=== PATIENT | male | born 1965 | race Caucasian/White ===

== ENCOUNTER 2016-10-23 20:48 | Emergency (ER) | payer OTHER ==
[~2016-10-23] VITALS: Ht 177.8 cm; Wt 124.5 kg
[2016-10-23 20:51] VITALS: Ht 177.8 cm; Wt 124.5 kg
[2016-10-23] MEDS ORDERED: SOD CHLORIDE 0.9% 1,000 ML IV STA (21:15)
[2016-10-23] MEDS ORDERED: morphine 4 MG/ML VIAL IV STA (21:15)
[2016-10-23] MEDS ORDERED: ONDANSETRON 4 MG INJ IV STA (21:15)
[2016-10-23 21:37] LABS: ADD SCAN DIFF NO
[2016-10-23 21:39] LABS: BASOPHILS % 0.5 % (0.0-2.0); EOSINOPHILS # 0.3 10^3/ul (0.0-0.5); EOSINOPHILS % 3.6 % (0.0-7.0); HEMATOCRIT 36.8 % (42.0-52.0); HEMOGLOBIN 12.2 g/dl (14.0-18.0); LYMPHOCYTES # 1.6 10^3/ul (0.8-2.9); LYMPHOCYTES % 20.3 % (15.0-51.0); MEAN CORPUSCULAR HGB CONC 33.2 g/dl (32.0-37.0); MEAN CORPUSCULAR VOLUME 87.6 fl (82.0-101.0); MEAN PLATELET VOLUME 10.5 fl (7.4-10.4); MONOCYTE # 0.6 10^3/ul (0.3-0.9); MONOCYTES % 7.2 % (0.0-11.0); NEUTROPHIL # 5.3 10^3/ul (1.6-7.5); NEUTROPHILS % 68.1 % (39.0-77.0); PLATELET COUNT 177 10^3/UL (140-415); RED CELL DISTRIBUTION WIDTH 12.9 % (11.5-14.5); WHITE BLOOD COUNT 7.7 10^3/ul (4.8-10.8)
[2016-10-23 21:40] LABS: ADD UMIC YES; URINE BILIRUBIN (Dip) NEGATIVE (NEGATIVE); URINE BLOOD (Dip) 1+ (NEGATIVE); URINE COLOR LT. YELLOW (YELLOW); URINE GLUCOSE (Dip) NEGATIVE (NEGATIVE); URINE KETONES (Dip) NEGATIVE (NEGATIVE); URINE LEUKOCYTE ESTERASE (Dip) NEGATIVE (NEGATIVE); URINE NITRITE (Dip) NEGATIVE (NEGATIVE); URINE TOTAL PROTEIN (Dip) NEGATIVE (NEGATIVE); URINE UROBILINOGEN (Dip) 0.2 E.U./dL (0.1-1.0)
[2016-10-23 21:50] LABS: ALBUMIN 4.2 g/dl (3.3-4.9)
[2016-10-23 21:51] LABS: POTASSIUM 3.6 mmol/L (3.5-5.1)
[2016-10-23 21:53] LABS: BILIRUBIN,INDIRECT 0.6 mg/dl (0-1.1); BILIRUBIN,TOTAL 0.6 mg/dl (0.2-1.3); CREATININE 0.82 mg/dl (0.61-1.24)
[2016-10-23 21:54] LABS: ALBUMIN/GLOBULIN RATIO 1.05; CALCIUM 8.8 mg/dl (8.4-10.2); TOTAL PROTEIN 8.2 g/dl (6.1-8.1)
[2016-10-23 22:01] LABS: SQUAMOUS EPITHELIAL CELL,UR RARE
--- NOTE | 2016-10-23 22:18 | RADRPT ---
PROCEDURE: CT Abdomen and Pelvis without contrast. CLINICAL INDICATION: Pain. TECHNIQUE: CT scan of the abdomen and pelvis was performed on a multidetector slice CT scanner. No intravenous contrast material was utilized. Sagittal and coronal reformatted images were obtained fr om the axial source images. Images were reviewed on a high-resolution PACS workstation. Exam CTDlvol = 23 mGy and DLP = 1416 Gy-cm. One of the following 3 dose reduction techniques were used: Automate d exposure control; adjustment of the mA and/or kV according to patient size; or use of iterative re construction technique. COMPARISON: None. FINDINGS: There is no obstruction or ileus. The appendix is well visualized and normal in size. There are mul tiple proximal sigmoid colon diverticuli with associated wall thickening and surrounding infiltratio n. There is no free intraperitoneal gas. There is a small amount of free fluid. The liver is overall normal in size. No intrahepatic lesions are identified. The gallbladder is norm al in appearance. There is no definite biliary ductal dilation. Pancreas is normal in appearance. Th e spleen is unremarkable.. There are no adrenal masses. The aorta is normal caliber. Kidneys are normal in appearance without hydronephrosis, mass or calculus. There is no perinephric c ollection. Ureters are of normal caliber and without evidence for an obstructing calculus. The urin hermes bladder is contracted with nonspecific wall thickening.. Limited evaluation lung bases is unremarkable. There are degenerative changes of the lower thoracic and lumbar spine.. IMPRESSION: 1. Focal wall thickening with surrounding infiltration the presence of several diverticuli most cons istent with acute diverticulitis. A colonic neoplasm is less likely although cannot be excluded, re commend follow-up. 2. Small amount of free fluid. No free intraperitoneal gas. 3. No obstruction or ileus. 4. No obstructive uropathy. Contracts urinary bladder with nonspecific wall thickening. 5. Degenerative changes of the thoracic lumbar spine. RPTAT: HMVK .Simon Diallo MD, Date Time Electronically viewed and signed by .Simon Diallo MD, on 10/23/2016 22:18 .K/
[2016-10-23 22:19] VITALS: BP 138/75; PULSE 71; RESP 20
[2016-10-23] MEDS ORDERED: CIPR500T4 PO (22:47)
[2016-10-23] MEDS ORDERED: ONDA4TAB14 PO (22:47)
[2016-10-23] MEDS ORDERED: HYDR-902 PO (22:47)
[2016-10-23] MEDS ORDERED: METR500T PO (22:47)
--- NOTE | 2016-10-23 22:54 | ERD ---
ER Documentation Chief Complaint Date/Time DATE: 10/23/16 TIME: 22:52 Chief Complaint lower abd pain x 3 days HPI Patient is a 51-year-old male with diabetes who presents with abdominal pain. This is been there for the past 8 days. The patient had gradual onset pain. Patient tried ibuprofen, Pepto-Bismol, and Mylanta. Today the patient's pain was worse. It is lower abdominal pain. He feels bloated. He has had no fevers. He said that he had one episode of diarrhea today. He denies testicular pain. Upon review of old medical records this is the patient's first visit to the emergency department. He does not remember the name of his primary doctor. ROS All systems reviewed and are negative except as per history of present illness. Medications Home Meds Active Scripts Metronidazole* (Flagyl*) 500 Mg Tablet, 500 MG PO TID for 7 Days, TAB Prov:RAJWINDER DELATORRE MD 10/23/16 Ciprofloxacin Hcl* (Ciprofloxacin Hcl*) 500 Mg Tablet, 500 MG PO BID for 7 Days , TAB Prov:RAJWINDER DELATORRE MD 10/23/16 Ondansetron (Ondansetron Odt) 4 Mg Tab.rapdis, 4 MG PO Q6H Y for NAUSEA AND/OR VOMITING, #30 TAB Prov:RAJWINDER DELATORRE MD 10/23/16 Hydrocodone/Acetaminophen (Tucker 10-325 Tablet) 1 Each Tablet, 1 TAB PO Q6H Y for PAIN, #7 TAB Prov:RAJWINDER DELATORRE MD 10/23/16 Allergies Allergies: Coded Allergies: No Known Allergy (Unverified , 10/23/16) PMhx/Soc History of Surgery: No Anesthesia Reaction: No Hx Neurological Disorder: No Hx Respiratory Disorders: No Hx Cardiac Disorders: No Hx Psychiatric Problems: No Hx Miscellaneous Medical Probl: Yes (dm) Hx Alcohol Use: No Hx Substance Use: No Hx Tobacco Use: No Smoking Status: Never smoker FmHx Family History: No diabetes Physical Exam Vitals Vital Signs Date Time Temp Pulse Resp B/P Pulse Ox O2 Delivery O2 Flow Rate FiO2 10/23/16 22:19 71 20 138/75 99 Room Air 10/23/16 20:51 98.4 80 20 143/77 97 Physical Exam Const: Mild distress secondary to pain Head: Atraumatic Eyes: Normal Conjunctiva ENT: Normal External Ears, Nose and Mouth. Neck: Full range of motion..~ No meningismus. Resp: Clear to auscultation bilaterally Cardio: Regular rate and rhythm, no murmurs Abd: Soft, lower abdominal pain with palpation without rebound or guarding Skin: No petechiae or rashes Back: No midline or flank tenderness Ext: No cyanosis, or edema Neur: Awake and alert Psych: Normal Mood and Affect Result Diagram: 10/23/16212910/23/162129 Results 24 hrs Laboratory Tests Test 10/23/16 21:30 White Blood Count 7.710^3/ul Red Blood Count 4.2010^6/ul Hemoglobin 12.2g/dl Hematocrit 36.8% Mean Corpuscular Volume 87.6fl Mean Corpuscular Hemoglobin 29.0pg Mean Corpuscular Hemoglobin Concent 33.2g/dl Red Cell Distribution Width 12.9% Platelet Count 47076^3/UL Mean Platelet Volume 10.5fl Neutrophils % 68.1% Lymphocytes % 20.3% Monocytes % 7.2% Eosinophils % 3.6% Basophils % 0.5% Nucleated Red Blood Cells % 0.0/100WBC Neutrophils # 5.310^3/ul Lymphocytes # 1.610^3/ul Monocytes # 0.610^3/ul Eosinophils # 0.310^3/ul Basophils # 0.010^3/ul Nucleated Red Blood Cells # 0.010^3/ul Urine Color LT. YELLOW Urine Clarity CLEAR Urine pH 6.0 Urine Specific [place] 1.025 Urine Ketones NEGATIVE Urine Nitrite NEGATIVE Urine Bilirubin NEGATIVE Urine Urobilinogen 0.2 E.U./dL Urine Leukocyte Esterase NEGATIVE Urine Microscopic RBC 2-5/HPF Urine Microscopic WBC 0-2/HPF Urine Squamous Epithelial Cells RARE Urine Hemoglobin 1+ Urine Glucose NEGATIVE% Urine Total Protein NEGATIVE Sodium Level 139mmol/L Potassium Level 3.6mmol/L Chloride Level 101mmol/L Carbon Dioxide Level 24mmol/L Anion Gap 18 Blood Urea Nitrogen 23mg/dl Creatinine 0.82mg/dl Glucose Level 161mg/dl Calcium Level 8.8mg/dl Total Bilirubin 0.6mg/dl Direct Bilirubin 0.00mg/dl Indirect Bilirubin 0.6mg/dl Aspartate Amino Transf (AST/SGOT) 32IU/L Alanine Aminotransferase (ALT/SGPT) 35IU/L Alkaline Phosphatase 74IU/L Total Protein 8.2g/dl Albumin 4.2g/dl Globulin 4.00g/dl Albumin/Globulin Ratio 1.05 Lipase 43U/L Current Medications Medications (Trade) Dose Ordered Sig/Arianna Route PRN Reason Start Time Stop Time Status Last Admin Dose Admin Sodium Chloride (NS) 1,000 ml @ 1,000 mls/hr Q1H STAT IV 10/23/16 21:15 10/23/16 22:14 DC 10/23/16 21:28 Morphine Sulfate (morphine) 4 mg ONCE STAT IV 10/23/16 21:15 10/23/16 21:16 DC 10/23/16 21:28 Ondansetron HCl (Zofran Inj) 4 mg ONCE STAT IV 10/23/16 21:15 10/23/16 21:16 DC 10/23/16 21:28 Ciprofloxacin (Cipro) 500 mg ONCE ONCE PO 10/23/16 23:00 10/23/16 23:01 10/23/16 22:48 Metronidazole (Flagyl) 500 mg ONCE ONCE PO 10/23/16 23:00 10/23/16 23:01 10/23/16 22:48 Procedures/MDM CT scan shows acute diverticulitis per radiology. Patient is a 51-year-old male with diabetes who presents with abdominal pain. He was found to have acute diverticulitis on his CT scan. He is otherwise well- appearing and I believe outpatient management is appropriate. His white count is normal. The patient will be given a prescription for Cipro, Flagyl, Tucker, and Zofran. The patient can return for any worsening symptoms. He feels better upon discharge. I doubt appendicitis, cholecystitis, pancreatitis, or bowel obstruction. Departure Diagnosis: Primary Impression: Diverticulitis Diverticulitis site: large intestine Diverticulitis bleeding: without bleeding Diverticulitis complication: without perforation or abscess Qualified Code: K57.32 - Diverticulitis of large intestine without perforation or abscess without bleeding Additional Impression: Abdominal pain Abdominal location: left lower quadrant Qualified Code: R10.32 - Left lower quadrant pain Condition: Fair Patient Instructions: Abdominal Pain, Diverticulitis Referrals: Your doctor Additional Instructions: Llame al doctor MAANA y justin amy HEIKE PARA DENTRO DE 1-2 TELLO.Dgale a la secretaria que nosotros le instruimos hacer esta heike.Avise o llame si gallego condicin se empeora antes de la heike. Regresa aqui si peor o no mejor. RAJWINDER DELATORRE MD Oct 23, 2016 22:54
[2016-10-23] MEDS ORDERED: CIPROFLOXACIN 500 MG TAB PO ONE (23:00)
[2016-10-23] MEDS ORDERED: metroNIDAZOLE 500 MG TAB PO ONE (23:00)
== END 2016-10-23 22:57 | disposition home or self-care (01) ==
LOC: E/R 20:48
DX: K57.32 Diverticulitis of large intestine without perforation or abscess without bleeding (principal); R10.32 Left lower quadrant pain; E11.9 Type 2 diabetes mellitus without complications
CPT/HCPCS: 36415; 74176; 80053; 81001; 83690; 85025; 96374; 96375; J2270; J2405; J7030; Z7502; Z7610; 81003

== ENCOUNTER 2017-11-13 21:14 | Emergency (ER) | END 2017-11-13 23:27 | disposition home or self-care (01) ==

== ENCOUNTER 2018-11-24 02:23 | Emergency (ER) | payer OTHER ==
[~2018-11-24] VITALS: Ht 182.9 cm; Wt 126.6 kg
[~2018-11-24 02:23] MED LIST: CIPR500T4 PO; HYDR-3980 PO; METR500T PO; ONDA4TAB14 PO; PHEN-537 PO
[2018-11-24 02:32] VITALS: Ht 182.9 cm; Wt 126.6 kg
[2018-11-24] MEDS ORDERED: CEFTRIAXONE 250 MG INJ IM ONE (03:30)
[2018-11-24] MEDS ORDERED: AZITHROMYCIN 500 MG TAB PO ONE (03:30)
[2018-11-24] MEDS ORDERED: OXYCODONE/ACETAMINOPHEN (5/325) TAB PO ONE (03:30)
[2018-11-24] MEDS ORDERED: SOD CHLORIDE 0.9% 1,000 ML IV STA (03:34)
[2018-11-24] MEDS ORDERED: morphine 4 MG/ML VIAL IV STA (03:34)
[2018-11-24] MEDS ORDERED: ONDANSETRON 4 MG INJ IV STA (03:34)
[2018-11-24] MEDS ORDERED: CEFTRIAXONE 250 MG INJ IVPB ONE (04:00)
[2018-11-24] MEDS ORDERED: CEFTRIAXONE 1 GM INJ IVPB ONE (04:30)
[2018-11-24] MEDS ORDERED: CIPR500T4 PO (05:47)
[2018-11-24] MEDS ORDERED: HYDR-4011 PO (05:48)
[2018-11-24 06:19] VITALS: BP 138/78; PULSE 72; RESP 16
--- NOTE | 2018-11-24 17:56 | ERD ---
ER Documentation Chief Complaint Chief Complaint DYSURIA X2WKS ON/OFF, BLOOD IN URINE TODAY; NO FLANK PAIN HPI 53-year-old male presents with complaint of dysuria for the past 2 weeks. In addition he states that today he noticed blood in his urine. States he has had UTIs in the past which has been treated with antibiotics and they have successfully resolved. Denies any unprotected sexual intercourse, flank pain, fevers, vomiting, back pain. History of diabetes. ROS All systems reviewed and are negative except as per history of present illness. Medications Home Meds Active Scripts Hydrocodone/Acetaminophen ([place] 5-325 Tablet) 1 Each Tablet, 1 TAB PO Q6H PRN for PAIN, #15 TAB Prov:MANDEEP KHAN 11/24/18 Ciprofloxacin Hcl* (Ciprofloxacin Hcl*) 500 Mg Tablet, 500 MG PO BID for UTI for 7 Days, TAB Prov:MANDEEP KHAN 11/24/18 Phenazopyridine Hcl* (Pyridium*) 100 Mg Tab, 100 MG PO TID PRN for URINARY PAIN, #8 TAB Prov:MANDEEP COVARRUBIAS PA-C 11/13/17 Ciprofloxacin Hcl* (Ciprofloxacin Hcl*) 500 Mg Tablet, 500 MG PO BID for 10 Days, #20 TAB Prov:MANDEEP COVARRUBIAS PA-C 11/13/17 Metronidazole* (Flagyl*) 500 Mg Tablet, 500 MG PO TID for 7 Days, TAB Prov:RAJWINDER DELATORRE MD 10/23/16 Ciprofloxacin Hcl* (Ciprofloxacin Hcl*) 500 Mg Tablet, 500 MG PO BID for 7 Days, TAB Prov:RAJWINDER DELATORRE MD 10/23/16 Ondansetron (Ondansetron Odt) 4 Mg Tab.rapdis, 4 MG PO Q6H PRN for NAUSEA AND/OR VOMITING, #30 TAB Prov:RAJWINDER DELATORRE MD 10/23/16 Hydrocodone/Acetaminophen ([place] 10-325 Tablet) 1 Each Tablet, 1 TAB PO Q6H PRN for PAIN, #7 TAB Prov:RAJWINDER DELATORRE MD 10/23/16 Allergies Allergies: Coded Allergies: No Known Allergy (Unverified , 10/23/16) PMhx/Soc History of Surgery: No Anesthesia Reaction: No Hx Neurological Disorder: No Hx Respiratory Disorders: No Hx Cardiac Disorders: No Hx Psychiatric Problems: No Hx Miscellaneous Medical Probl: Yes (dm) Hx Alcohol Use: No Hx Substance Use: No Hx Tobacco Use: No Smoking Status: Never smoker FmHx Family History: No diabetes, No coronary disease, No other Physical Exam Vitals Vital Signs Date Temp Pulse Resp B/P (MAP) Pulse Ox O2 O2 Flow FiO2 Time Delivery Rate 11/24/18 98.3 72 16 138/78 97 Room Air 06:19 (98) 11/24/18 97.8 72 18 150/83 93 02:32 (105) Physical Exam Const: No acute distress Head: Atraumatic Eyes: Normal Conjunctiva ENT: Normal External Ears, Nose and Mouth. Neck: Full range of motion. No meningismus. Resp: Clear to auscultation bilaterally Cardio: Regular rate and rhythm, no murmurs Abd: Soft, non tender, non distended. Normal bowel sounds Skin: No petechiae or rashes Back: No midline or flank tenderness Ext: No cyanosis, or edema Neur: Awake and alert Psych: Normal Mood and Affect : Thick white discharge noted opening to the urethra. Testicles are non- edematous or tender to palpation. Scrotum is not edematous erythematous with normal lie. Result Diagram: 11/24/18 0335 11/24/18 0335 Results 24 hrs Laboratory Tests Test 11/24/18 03:23 11/24/18 03:35 Urine Color CARMELITA Urine Clarity TURBID Urine pH 5.0 Urine Specific [place] 1.025 Urine Ketones NEGATIVE mg/dL Urine Nitrite POSITIVE mg/dL Urine Bilirubin NEGATIVE mg/dL Urine Urobilinogen NEGATIVE mg/dL Urine Leukocyte Esterase 1+ Tim/ul Urine Microscopic RBC > 182 /HPF Urine Microscopic WBC 61 /HPF Urine Bacteria MODERATE /HPF Urine Hemoglobin 2+ mg/dL Urine Glucose NEGATIVE mg/dL Urine Total Protein 2+ mg/dl White Blood Count 7.8 10^3/ul Red Blood Count 4.76 10^6/ul Hemoglobin 13.5 g/dl Hematocrit 40.7 % Mean Corpuscular Volume 85.5 fl Mean Corpuscular Hemoglobin 28.4 pg Mean Corpuscular Hemoglobin Concent 33.2 g/dl Red Cell Distribution Width 12.9 % Platelet Count 162 10^3/UL Mean Platelet Volume 10.0 fl Immature Granulocytes % 0.600 % Neutrophils % 67.4 % Lymphocytes % 21.6 % Monocytes % 6.5 % Eosinophils % 3.3 % Basophils % 0.6 % Nucleated Red Blood Cells % 0.0 /100WBC Immature Granulocytes # 0.050 10^3/ul Neutrophils # 5.3 10^3/ul Lymphocytes # 1.7 10^3/ul Monocytes # 0.5 10^3/ul Eosinophils # 0.3 10^3/ul Basophils # 0.1 10^3/ul Nucleated Red Blood Cells # 0.0 10^3/ul Sodium Level 143 mmol/L Potassium Level 4.1 mmol/L Chloride Level 106 mmol/L Carbon Dioxide Level 28 mmol/L Anion Gap 9 Blood Urea Nitrogen 21 mg/dl Creatinine 0.82 mg/dl Est Glomerular Filtrat Rate mL/min > 60 mL/min Glucose Level 159 mg/dl Calcium Level 8.7 mg/dl Total Bilirubin 0.4 mg/dl Direct Bilirubin 0.00 mg/dl Indirect Bilirubin 0.4 mg/dl Aspartate Amino Transf (AST/SGOT) 24 IU/L Alanine Aminotransferase (ALT/SGPT) 41 IU/L Alkaline Phosphatase 94 IU/L Creatine Kinase 197 IU/L Total Protein 8.1 g/dl Albumin 4.3 g/dl Globulin 3.80 g/dl Albumin/Globulin Ratio 1.13 Lipase 70 U/L Current Medications Medications Dose Sig/Arianna Start Time Status Last (Trade) Ordered Route PRN Stop Time Admin Dose Reason Admin Ceftriaxone 250 mg ONCE ONCE 11/24/18 DC Sodium IM 03:30 (Rocephin) 11/24/18 04:13 1,000 mg ONCE ONCE 11/24/18 DC 11/24/18 Azithromycin PO 03:30 03:58 (Zithromax) 11/24/18 03:31 Oxycodone/ 1 tab ONCE ONCE 11/24/18 DC Acetaminophen PO 03:30 (Percocet 11/24/18 03:31 (5/ 325)) Sodium 1,000 ml @ Q1H STAT 11/24/18 DC 11/24/18 Chloride 1,000 mls/hr IV 03:34 03:38 11/24/18 04:33 Morphine 4 mg ONCE STAT 11/24/18 DC 11/24/18 Sulfate IV 03:34 03:58 (morphine) 11/24/18 03:35 Ondansetron 4 mg ONCE STAT 11/24/18 DC 11/24/18 HCl (Zofran IV 03:34 03:58 Inj) 11/24/18 03:35 Ceftriaxone 250 mg ONCE ONCE 11/24/18 DC Sodium IVPB 04:00 (Rocephin) 11/24/18 04:13 Ceftriaxone 1 gm ONCE ONCE 11/24/18 DC 11/24/18 Sodium IVPB 04:30 04:27 (Rocephin) 11/24/18 04:31 Procedures/MDM DIAGNOSTIC IMAGING REPORT Patient: ZAID JACKSON : 1965 Age: 53 Sex: M MR #: [id number] DOS: 11/24/18 0332 Ordering MD: MANDEEP KHAN Location: [facility] Room/Bed: PROCEDURE: ULTRASOUND TESTICULAR CLINICAL INDICATION: 53-year-old male with abdominal and penile pain. TECHNIQUE: Multiple sonographic images of the scrotal region were obtained utilizing a linear array transducer with grayscale and color-flow and a Doppler imaging. The images were reviewed on a high-resolution PACS workstation. COMPARISON: CT abdomen/pelvis October 23, 2016. FINDINGS: The right testicle is well visualized and has a normal echotexture. No focal ar eas of abnormal echogenicity are visualized. The right testicle measures 4.6 x 2.4 x 3.4 cm. There is normal color-flow. The right epididymis is visualized and measures approximately measures 10 x 9 x 10 mm. There is normal color-flow. The left testicle is well visualized and has a normal echotexture. No focal areas abnormal echogenicity are visualized. The left testicle measures 4.6 x 2.2 x 3.2 cm. There is normal color-flow. The left epididymis is visualized and measures approximately measures 12 x 7 x 7 mm. There is normal color-flow. IMPRESSION: Unremarkable testicular ultrasound. .Toñito Olivier MD, Date Time Electronically viewed and signed by .Toñito Olivier MD, on 11/24/2018 05:20 .M/ CC: MANDEEP KHAN [id number] MDM: UA was positive for UTI. Since patient is a male and since he is experiencing hematuria he will be treated for complicated UTI with 1 g of ceftriaxone and 7-day course of ciprofloxacin. Scrotal ultrasound was within normal limits. Since there was penile discharge noted patient will be treated empirically for possible STD with azithromycin and ceftriaxone. Patient also advised to follow-up with urologist to rule out prostate pathology. At this point I have low suspicion for testicular torsion, epididymitis, pyelonephritis, scrotal abscess, or any other emergent condition. Patient discharged with strict ER precautions. Patient advised to follow up with PMD. All questions answered at discharge. Departure Diagnosis: Primary Impression: Urinary tract infection Urinary tract infection type: acute cystitis Hematuria presence: with hematuria Qualified Codes: N30.01 - Acute cystitis with hematuria Condition: Stable Patient Instructions: Understanding Urinary Tract Infections (UTIs) Referrals: [facility] YOU HAVE RECEIVED A MEDICAL SCREENING EXAM AND THE RESULTS INDICATE THAT YOU DO NOT HAVE A CONDITION THAT REQUIRES URGENT TREATMENT IN THE EMERGENCY DEPARTMENT. FURTHER EVALUATION AND TREATMENT OF YOUR CONDITION CAN WAIT UNTIL YOU ARE SEEN IN YOUR DOCTORS OFFICE WITHIN THE NEXT 1-2 DAYS. IT IS YOUR RESPONSIBILITY TO MAKE AN APPOINTMENT FOR FOLOW-UP CARE. IF YOU HAVE A PRIMARY DOCTOR --you should call your primary doctor and schedule an appointment IF YOU DO NOT HAVE A PRIMARY DOCTOR YOU CAN CALL OUR PHYSICIAN REFERRAL HOTLINE AT IF YOU CAN NOT AFFORD TO SEE A PHYSICIAN YOU CAN CHOSE FROM THE FOLLOWING [facility] [address] [facility]. [facility] [address] [facility] [facility] [address] [facility]. [facility] [address] [facility]. [facility] [address] [facility]. [facility]. [address] Additional Instructions: Please follow-up with your primary care doctor to make an appointment with the urologist as there may be a problem with your prostate. FOLLOW UP WITH YOUR PRIMARY CARE PHYSICIAN TOMORROW.Return to this facility if you are not improving as expected. MANDEEP KHAN November 24, 2018 17:56
== END 2018-11-24 06:20 | disposition home or self-care (01) ==
LOC: FTE 02:23
DX: N30.01 Acute cystitis with hematuria (principal); E11.9 Type 2 diabetes mellitus without complications
CPT/HCPCS: 36415; 76870; 80053; 81001; 82550; 83690; 85025; 87591; 96374; 96375; J0696; J2270; J2405; J7030; Z7502; Z7610